=== PATIENT | male | born 1940 | race Caucasian/White ===

== ENCOUNTER 2018-09-08 10:19 | Observation (INO) | payer OTHER ==
[2018-09-08 10:48] LABS: ADD MAN DIFF? NO
[2018-09-08 10:49] LABS: BASOPHIL # 0.1 10^3/ul (0.0-0.1); BASOPHILS % 0.7 % (0.0-2.0); EOSINOPHILS # 0.1 10^3/ul (0.0-0.5); EOSINOPHILS % 1.2 % (0.0-7.0); HEMATOCRIT 35.9 % (42.0-52.0); HEMOGLOBIN 12.4 g/dl (14.0-18.0); LYMPHOCYTES # 1.4 10^3/ul (0.8-2.9); LYMPHOCYTES % 19.9 % (15.0-51.0); MEAN CORPUSCULAR HEMOGLOBIN 29.7 pg (29.0-33.0); MEAN CORPUSCULAR HGB CONC 34.5 g/dl (32.0-37.0); MEAN CORPUSCULAR VOLUME 86.1 fl (82.0-101.0); MEAN PLATELET VOLUME 9.6 fl (7.4-10.4); MONOCYTE # 0.9 10^3/ul (0.3-0.9); MONOCYTES % 12.2 % (0.0-11.0); NEUTROPHIL # 4.5 10^3/ul (1.6-7.5); NEUTROPHILS % 65.1 % (39.0-77.0); PLATELET COUNT 160 10^3/UL (140-415); RED BLOOD COUNT 4.17 10^6/ul (4.70-6.10); RED CELL DISTRIBUTION WIDTH 13.2 % (11.5-14.5)
[2018-09-08 11:09] LABS: ALANINE AMINOTRANSFERASE 24 IU/L (13-69); ALBUMIN 4.3 g/dl (3.3-4.9); ALBUMIN/GLOBULIN RATIO 1.34; ALKALINE PHOSPHATASE 105 IU/L (42-121); ANION GAP 13 (5-13); ASPARTATE AMINO TRANSFERASE 21 IU/L (15-46); BILIRUBIN,INDIRECT 0.4 mg/dl (0-1.1); BILIRUBIN,TOTAL 0.4 mg/dl (0.2-1.3); BLOOD UREA NITROGEN 18 mg/dl (7-20); CALCIUM 9.2 mg/dl (8.4-10.2); CARBON DIOXIDE 24 mmol/L (21-31); CHLORIDE 95 mmol/L (97-110); CREATININE 0.78 mg/dl (0.61-1.24); GLUCOSE 237 mg/dl (70-220); LIPASE 120 U/L (23-300); POTASSIUM 4.1 mmol/L (3.5-5.1); SODIUM 132 mmol/L (135-144); TOTAL PROTEIN 7.5 g/dl (6.1-8.1)
[2018-09-08] MEDS: SOD CHLORIDE 0.9% 500 ML IV (11:10)
[2018-09-08 11:48] LABS: ADD UMIC NO; UR ASCORBIC ACID NEGATIVE (NEGATIVE); UR BILIRUBIN (Dip) NEGATIVE (NEGATIVE); UR BLOOD (Dip) NEGATIVE (NEGATIVE); UR CLARITY CLEAR (CLEAR); UR COLOR YELLOW (YELLOW); UR GLUCOSE (Dip) 1+ mg/dL (NEGATIVE); UR KETONES (Dip) NEGATIVE (NEGATIVE); UR LEUKOCYTE ESTERASE (Dip) NEGATIVE Leu/ul (NEGATIVE); UR NITRITE (Dip) NEGATIVE (NEGATIVE); UR SPECIFIC GRAVITY (Dip) 1.024 (1.003-1.030); UR TOTAL PROTEIN (Dip) NEGATIVE (NEGATIVE); UR UROBILINOGEN (Dip) NEGATIVE (NEGATIVE)
[2018-09-08] MEDS ORDERED: ONDANSETRON 4 MG INJ IV (14:00)
[2018-09-08] MEDS ORDERED: ACETAMINOPHEN 325 MG TAB PO (14:00)
[2018-09-08 15:50] LABS: HEMOGLOBIN A1C 6.1 % (0-5.9)
[2018-09-08] MEDS ORDERED: GLUCOSE GEL 15 GRAM TUBE BUCCAL (16:00)
[2018-09-08] MEDS ORDERED: GLUCAGON 1 MG INJ IM (16:00)
[2018-09-08] MEDS ORDERED: NACL 0.9% 3 ML SYG IV (16:00)
[2018-09-08] MEDS ORDERED: DEXTROSE 50% 50 ML SYRINGE IV ×2 (16:00)
[2018-09-08] MEDS ORDERED: GLUCOSE GEL 15 GRAM TUBE PO ×2 (16:00)
[2018-09-08] MEDS ORDERED: ACETAMINOPHEN 650 MG SUPP PR (16:00)
[2018-09-08] MEDS: ONDANSETRON 4 MG INJ IV (16:51)
[2018-09-08 16:52] LABS: PROSTATE SPECIFIC ANTIGEN < 0.1 ng/ml (0.0-4.0)
[2018-09-08] MEDS: INSULIN ASPART [NOVOLOG] 3 ML PEN SC ×2 (17:19→20:41)
[2018-09-08] MEDS: GABAPENTIN 300 MG CAP PO (20:39)
[2018-09-08] MEDS: INSULIN GLARGINE [LANTus] (100 UNITS/ML) SYG SC (20:42)
[2018-09-08] MEDS: MELOXICAM 7.5 MG TAB PO (20:45)
[2018-09-08] MEDS ORDERED: NON-FORMULARY/PATIENT OWN MED (Esomeprazole Mag Trihydrate (Nexium) 40 MG) PO (21:00)
[2018-09-09] MEDS: ACCU-CHEK XX (02:00)
[2018-09-09] MEDS: PANTOPRAZOLE (EC) 40 MG TAB PO (05:02)
[2018-09-09] MEDS: hydrALAzine 20 MG INJ IV ×2 (05:03→10:19)
[2018-09-09 06:13] LABS: ADD MAN DIFF? NO
[2018-09-09 06:18] LABS: WHITE BLOOD COUNT 7.7 10^3/ul (4.8-10.8)
[2018-09-09 06:18] LABS: BASOPHIL # 0.1 10^3/ul (0.0-0.1); BASOPHILS % 0.8 % (0.0-2.0); EOSINOPHILS # 0.2 10^3/ul (0.0-0.5); EOSINOPHILS % 2.3 % (0.0-7.0); HEMATOCRIT 37.5 % (42.0-52.0); LYMPHOCYTES # 1.8 10^3/ul (0.8-2.9); LYMPHOCYTES % 23.7 % (15.0-51.0); MEAN CORPUSCULAR HEMOGLOBIN 29.7 pg (29.0-33.0); MEAN CORPUSCULAR HGB CONC 34.7 g/dl (32.0-37.0); MEAN CORPUSCULAR VOLUME 85.6 fl (82.0-101.0); MEAN PLATELET VOLUME 9.5 fl (7.4-10.4); MONOCYTE # 0.8 10^3/ul (0.3-0.9); MONOCYTES % 10.2 % (0.0-11.0); NEUTROPHIL # 4.8 10^3/ul (1.6-7.5); PLATELET COUNT 160 10^3/UL (140-415); RED BLOOD COUNT 4.38 10^6/ul (4.70-6.10)
[2018-09-09 07:07] LABS: ALANINE AMINOTRANSFERASE 26 IU/L (13-69); ALBUMIN 4.2 g/dl (3.3-4.9); ALBUMIN/GLOBULIN RATIO 1.35; ALKALINE PHOSPHATASE 103 IU/L (42-121); ANION GAP 10 (5-13); ASPARTATE AMINO TRANSFERASE 19 IU/L (15-46); BILIRUBIN,INDIRECT 0.5 mg/dl (0-1.1); BILIRUBIN,TOTAL 0.5 mg/dl (0.2-1.3); BLOOD UREA NITROGEN 15 mg/dl (7-20); CALCIUM 9.6 mg/dl (8.4-10.2); CARBON DIOXIDE 27 mmol/L (21-31); CHLORIDE 94 mmol/L (97-110); CHOL/HDL RATIO 4.4 RATIO; CHOLESTEROL 156 mg/dl (100-200); CREATININE 0.71 mg/dl (0.61-1.24); GLUCOSE 152 mg/dl (70-220); HDL CHOLESTEROL 35 mg/dl (31-75); LDL CHOLESTEROL,CALCULATED 72 mg/dl; MAGNESIUM 1.7 mg/dl (1.7-2.5); PHOSPHORUS 4.7 mg/dl (2.5-4.9); POTASSIUM 3.8 mmol/L (3.5-5.1); SODIUM 131 mmol/L (135-144); TOTAL PROTEIN 7.3 g/dl (6.1-8.1); TRIGLYCERIDES 245 mg/dl (0-149)
[2018-09-09 07:11] LABS: FREE THYROXINE INDEX (Calc) 2.82 ug/ml (0.65-3.89); T3 UPTAKE 39.7 % (23.5-40.5); T4 (THYROXINE) 7.1 ug/dl (5.5-11.0)
[2018-09-09] MEDS: ONDANSETRON 4 MG INJ IV (07:48)
[2018-09-09] MEDS: INSULIN ASPART [NOVOLOG] 3 ML PEN SC ×4 (07:52→20:47)
[2018-09-09] MEDS: MELOXICAM 7.5 MG TAB PO ×2 (08:23→20:39)
[2018-09-09] MEDS: GABAPENTIN 300 MG CAP PO ×2 (08:23→20:43)
[2018-09-09] MEDS: AMLODIPINE 10 MG TAB PO (08:23)
[2018-09-09] MEDS: SODIUM CHLORIDE 1 GM TAB PO (08:24)
[2018-09-09] MEDS: LORAZEPAM 2 MG INJ IV (12:29)
[2018-09-09] MEDS ORDERED: LOSARTAN 25 MG TAB PO (13:00)
[2018-09-09] MEDS: HEPARIN 5,000 UNIT/1 ML VIAL SC (20:45)
[2018-09-09] MEDS: INSULIN GLARGINE [LANTus] (100 UNITS/ML) SYG SC (20:46)
[2018-09-09] MEDS: ACETAMINOPHEN 325 MG TAB PO (22:34)
[2018-09-10] MEDS: ZOLPIDEM 5 MG TAB PO (01:49)
[2018-09-10] MEDS: ACCU-CHEK XX (02:00)
[2018-09-10] MEDS: PANTOPRAZOLE (EC) 40 MG TAB PO (05:35)
[2018-09-10] MEDS: MAGNESIUM HYDROXIDE 30ML CUP PO (06:57)
[2018-09-10] MEDS: INSULIN ASPART [NOVOLOG] 3 ML PEN SC ×2 (08:10→11:51)
[2018-09-10] MEDS: GABAPENTIN 300 MG CAP PO (08:11)
[2018-09-10] MEDS: SODIUM CHLORIDE 1 GM TAB PO (08:11)
[2018-09-10] MEDS: MELOXICAM 7.5 MG TAB PO (08:11)
[2018-09-10] MEDS: HEPARIN 5,000 UNIT/1 ML VIAL SC (08:14)
[2018-09-10] MEDS: AMLODIPINE 10 MG TAB PO (08:16)
[2018-09-10] MEDS: ONDANSETRON 4 MG INJ IV (15:52)
[2018-09-10] MEDS: hydrALAzine 20 MG INJ IV (15:53)
== END 2018-09-10 17:25 | disposition home or self-care (01) ==
LOC: E/R 10:19 → 6WM 13:50
DX: R30.0 Dysuria (principal); R35.0 Frequency of micturition; R42 Dizziness and giddiness; R53.1 Weakness; I10 Essential (primary) hypertension; E11.9 Type 2 diabetes mellitus without complications; K29.70 Gastritis, unspecified, without bleeding; F41.9 Anxiety disorder, unspecified
CPT/HCPCS: 36415; 71045; 80053; 80061; 81003; 82962; 83036; 83690; 83735; 84100; 84153; 84154; 84436; 84443; 84479; 85025; 87086; 93005; 97161; 99285-25; G0378